=== PATIENT | male | born 1960 | race Caucasian/White ===

== ENCOUNTER 2017-07-29 13:52 | Emergency (ER) | payer OTHER ==
[~2017-07-29] VITALS: Ht 177.8 cm; Wt 118.9 kg
[2017-07-29 14:05] VITALS: TEMP 37.1; Ht 177.8 cm; Wt 118.9 kg
[2017-07-29] MEDS ORDERED: KETOROLAC TROMETHAMINE 30 MG/ML VIAL IV STA (15:34)
[2017-07-29] MEDS ORDERED: ONDANSETRON INJ 2 MG/ML 2 ML VIAL IV STA (15:34)
[2017-07-29 15:44] LABS: HEMATOCRIT 47.8 % (42-52); HEMOGLOBIN 16.6 g/dL (14.0-18.0); MEAN CELL VOLUME 91.6 fL (80-100); MEAN CORPUSCULAR HEMOGLOBIN 31.8 pg (25-34); MEAN CORPUSCULAR HGB CONC 34.7 g/dl (32-36); MEAN PLATELET VOLUME 9.7 fL (7.4-10.4); PLATELET COUNT 194 K/uL (130-400); RED CELL DISTRIBUTION WIDTH CV 14.3 % (11.5-14.5); RED CELL DISTRIBUTION WIDTH SD 47.9 fL (36.4-46.3); WHITE BLOOD COUNT 14.84 K/uL (4.8-10.8)
[2017-07-29] MEDS ORDERED: SODIUM CHLORIDE 0.9% 1000ML 1,000 ML IV ONE (15:45)
[2017-07-29 16:02] LABS: ALBUMIN 3.6 gm/dl (3.4-5.0); CALCIUM 9.3 mg/dl (8.5-10.1); CREATININE 1.25 mg/dl (0.60-1.40); POTASSIUM 3.9 mmol/L (3.5-5.1)
--- NOTE | 2017-07-29 16:09 | DIAGNOSTIC IMAGING REPORT ---
ABD/PELVIS NO IV OR ORAL CONT CT DOSE: 1711.13 mGy.cm HISTORY: Right lower quadrant pain Right flank pain rad to rlq TECHNIQUE: Multiaxial CT images of the abdomen and pelvis were performed without contrast. A dose lowering technique was utilized adhering to the principles of ALARA. COMPARISON STUDY: None. FINDINGS: Lung bases are clear. Fatty infiltration of the liver. Moderate right renal hydronephrosis. Mild right renal perinephric fat stranding. 4 mm obstructing calculus proximal right ureter best seen transaxial image 50. Several nonobstructing left renal calcifications. Nonobstructive bowel pattern. Mild chronic sigmoid diverticulosis. No evidence for acute diverticulitis. Fat-containing ventral hernia. Bladder is midline. IMPRESSION: 1. Obstructing 4 mm calculus proximal right ureter. 2. Moderate right renal height hydronephrosis with mild perinephric infiltrative change. 3. Several nonobstructing left renal calcifications. 4. Chronic sigmoid diverticulosis. The above report was generated using voice recognition software. It may contain grammatical, syntax or spelling errors. Electronically signed by: Ulises Urena M.D. 07/29/2017 4:07 PM Dictated Date/Time: 07/29/2017 4:04 PM
[2017-07-29] MEDS ORDERED: ASPI81TA28 PO (16:12)
[2017-07-29] MEDS ORDERED: ASCO10003 PO (16:12)
[2017-07-29] MEDS ORDERED: CANA1TAB PO (16:12)
[2017-07-29] MEDS ORDERED: LISI-461 PO (16:12)
[2017-07-29] MEDS ORDERED: GABA-113 PO (16:12)
[2017-07-29] MEDS ORDERED: CYAN500T13 PO (16:12)
[2017-07-29] MEDS ORDERED: DULO-24 PO (16:12)
[2017-07-29] MEDS ORDERED: METF-384 PO (16:12)
[2017-07-29] MEDS ORDERED: PYRI100T4 PO (16:12)
[2017-07-29] MEDS ORDERED: MULT-600 PO (16:12)
[2017-07-29] MEDS ORDERED: GLIP10TA9 PO (16:12)
[2017-07-29] MEDS ORDERED: PRAV40TA2 PO (16:12)
[2017-07-29] MEDS ORDERED: CEFTRIAXONE SOD INJ 1 GM ADDVIAL IV STA (16:37)
[2017-07-29] MEDS ORDERED: SULF800T23 PO (16:53)
[2017-07-29] MEDS ORDERED: TAMS0.4C38 PO (16:53)
[2017-07-29] MEDS ORDERED: ONDA4TAB10 SL (16:53)
[2017-07-29] MEDS ORDERED: OXYC1TAB3 PO (16:53)
[2017-07-29 18:16] VITALS: BP 139/71; PULSE 91; O2SAT 95
--- NOTE | 2017-07-30 15:17 | EMERGENCY ROOM VISIT NOTE ---
History First contact with patient: 15:08 Chief Complaint: FLANK PAIN Stated Complaint: ABD AND BACK PAIN History of Present Illness The patient is a 57 year old male who presents to the Emergency Room with complaints of right-sided flank pain that began about 8 hours ago. The patient travels extensively for work and lives in [place]. He noticed some discomfort as he was driving to [place] today. As he started traveling home from [place] he began with cold sweats and nausea. He now presents to this facility as it is the closest medical Hospital from when he started having symptoms. The patient states the pain is severe, 10/10, and radiating into his right-sided groin. He has not had fever or chills. The patient is diabetic. He does report a history of kidney stones in the past, but not for some time. No history of abdominal surgery. He has not taken anything [id number] as he has been traveling. He does not identify aggravating or alleviating factors. Review of Systems More than 10 systems were reviewed and otherwise negative with the exception of history of present illness. Past Medical/Surgical History Diabetes, hypertension Social History Smoking Status: Former Smoker Occupation Status: employed Current/Historical Medications Scheduled Ascorbic Acid (Vitamin C), 1,000 MG PO DAILY Aspirin (Aspirin Ec), 81 MG PO DAILY Canagliflozin (Invokana), 100 MG PO DAILY Cyanocobalamin (Vitamin B12 500MCG), 500 MCG PO DAILY Duloxetine HCl (Cymbalta), 20 MG PO BID Gabapentin (Neurontin), 300 MG PO HS Glipizide (Glucotrol), 10 MG PO BID Lisinopril (Zestril), 10 MG PO DAILY Metformin Hcl (Glucophage), 1,000 MG PO BID Multiple Vitamins W/ Minerals (Mens Multi Vitamin & Mine), 1 TAB PO DAILY Ondasetron Odt (Zofran Odt), 4 MG SL Q6H Oxycodone Immediate Rel Tab (Roxicodone Ir), 1-2 TAB PO Q6 Pravastatin Sodium (Pravastatin Sodium), 40 MG PO HS Pyridoxine (Vitamin B6), 100 MG PO BID Sulfa/Trimethoprim (Bactrim Ds 800MG/160MG), 1 TAB PO BID Tamsulosin Hcl (Flomax), 0.4 MG PO DAILY Physical Exam Vital Signs Date Time Temp Pulse Resp B/P (MAP) Pulse Ox O2 Delivery O2 Flow Rate FiO2 07/29/17 18:16 91 18 139/71 95 07/29/17 15:47 90 18 156/79 92 Room Air 07/29/17 14:05 37.1 88 18 154/84 94 Room Air Physical Exam VITALS: Vitals are noted on the nurse's note and reviewed by myself. Vital signs stable. GENERAL: Well-developed, well-nourished, white male who appears uncomfortable. He is cooperative., HEART: Regular rate and rhythm without murmurs gallops or rubs. LUNGS: Clear to auscultation bilaterally without wheezes, rales or rhonchi. No retractions or accessory muscle use. ABDOMEN: Positive normal bowel sounds x 4. Soft, nontender, without masses or organomegaly. No guarding or rebound tenderness. No CVA tenderness. MUSCULOSKELETAL: No muscle atrophy, erythema, or edema noted. Full range of motion without joint tenderness in all extremities. Medical Decision & Procedures ER Provider Diagnostic Interpretation: ABD/PELVIS NO IV OR ORAL CONT CT DOSE: 1711.13 mGy.cm HISTORY: Right lower quadrant pain Right flank pain rad to rlq TECHNIQUE: Multiaxial CT images of the abdomen and pelvis were performed without contrast. A dose lowering technique was utilized adhering to the principles of ALARA. COMPARISON STUDY: None. FINDINGS: Lung bases are clear. Fatty infiltration of the liver. Moderate right renal hydronephrosis. Mild right renal perinephric fat stranding. 4 mm obstructing calculus proximal right ureter best seen transaxial image 50. Several nonobstructing left renal calcifications. Nonobstructive bowel pattern. Mild chronic sigmoid diverticulosis. No evidence for acute diverticulitis. Fat-containing ventral hernia. Bladder is midline. IMPRESSION: 1. Obstructing 4 mm calculus proximal right ureter. 2. Moderate right renal height hydronephrosis with mild perinephric infiltrative change. 3. Several nonobstructing left renal calcifications. 4. Chronic sigmoid diverticulosis. Laboratory Results 07/29/17 15:34 Red Blood Count 5.22, Mean Corpuscular Volume 91.6, Mean Corpuscular Hemoglobin 31.8, Mean Corpuscular Hemoglobin Concent 34.7, Mean Platelet Volume 9.7 07/29/17 15:34 Test 07/29/17 15:09 07/29/17 15:34 Urine Color YELLOW Urine Appearance CLEAR (CLEAR) Urine pH 5.0 (4.5-7.5) Urine Specific [place] 1.030 (1.000-1.030) Urine Protein NEG (NEG) Urine Glucose (UA) 3+ (NEG) Urine Ketones NEG (NEG) Urine Occult Blood 3+ (NEG) Urine Nitrite NEG (NEG) Urine Bilirubin NEG (NEG) Urine Urobilinogen NEG (NEG) Urine Leukocyte Esterase NEG (NEG) Urine WBC (Auto) 1-5 /hpf (0-5) Urine RBC (Auto) >30 /hpf (0-4) Urine Hyaline Casts (Auto) 0 /lpf (0-5) Urine Epithelial Cells (Auto) 0-5 /lpf (0-5) Urine Bacteria (Auto) NEG (NEG) White Blood Count 14.84 K/uL (4.8-10.8) Red Blood Count 5.22 M/uL (4.7-6.1) Hemoglobin 16.6 g/dL (14.0-18.0) Hematocrit 47.8 % (42-52) Mean Corpuscular Volume 91.6 fL (80-100) Mean Corpuscular Hemoglobin 31.8 pg (25-34) Mean Corpuscular Hemoglobin Concent 34.7 g/dl (32-36) Platelet Count 194 K/uL (130-400) Mean Platelet Volume 9.7 fL (7.4-10.4) RDW Standard Deviation 47.9 fL (36.4-46.3) RDW Coefficient of Variation 14.3 % (11.5-14.5) Anion Gap 10.0 mmol/L (3-11) Est Creatinine Clear Calc Drug Dose 83.2 ml/min Estimated GFR () 73.1 Estimated GFR (Non- 63.1 BUN/Creatinine Ratio 14.2 (10-20) Calcium Level 9.3 mg/dl (8.5-10.1) Total Bilirubin 0.5 mg/dl (0.2-1) Aspartate Amino Transf (AST/SGOT) 22 U/L (15-37) Alanine Aminotransferase (ALT/SGPT) 48 U/L (12-78) Alkaline Phosphatase 54 U/L (45-117) Total Creatine Kinase 138 U/L (39-308) Total Protein 8.0 gm/dl (6.4-8.2) Albumin 3.6 gm/dl (3.4-5.0) Globulin 4.4 gm/dl (2.5-4.0) Albumin/Globulin Ratio 0.8 (0.9-2) Lipase 332 U/L (73-393) Medications Administered Medications (Trade) Dose Ordered Sig/Farhat Route Start Time Stop Time Status Last Admin Dose Admin Sodium Chloride 1,000 ml @ 999 mls/hr Q1H1M ONCE IV 07/29/17 15:45 07/29/17 16:45 DC 07/29/17 15:45 999 MLS/HR Ketorolac Tromethamine (Toradol Inj) 30 mg NOW STAT IV 07/29/17 15:34 07/29/17 15:36 DC 07/29/17 15:46 30 MG Ondansetron HCl (Zofran Inj) 4 mg NOW STAT IV 07/29/17 15:34 07/29/17 15:36 DC 07/29/17 15:45 4 MG Ceftriaxone Sodium (Rocephin Inj) 1 gm NOW STAT IV 07/29/17 16:37 07/29/17 16:38 DC 07/29/17 16:46 1 GM ED Course Physical exam and history were performed. Nursing notes, EMR, and Medication List were personally reviewed. Patient appears to have right-sided flank pain radiating into his right lower quadrant for the past several hours. He does appear uncomfortable on examination. IV access was established and labs were obtained. The patient was hydrated and medicated as above. Based on his presentation I did elect to perform a CT scan. The patient's blood work is as above and was reviewed. He does have an elevated white blood cell count of 14,000. He does not have a significant anemia or gross electrolyte imbalance. Lipase and transaminases are nondiagnostic. Urine is with blood. CT scan returned as above showing a 4 mm proximal ureteral calculi. This seems to correlate with his symptoms and is the likely cause of his pain. On repeat evaluation the patient had significant improvement of his pain with IV Toradol. I discussed options of care with the patient, and he does have a preference for discharge home as he lives nearly 2 hours away. Because of his elevated white count and diabetic history and did provide him a dose of Rocephin out of concern for possible early infection. I will give him a continuation prescription of Bactrim, as well as prescriptions for oxycodone, Zofran, and Flomax. The patient was given copies of his results today and will need to follow with urology upon returning home. He was certainly invited back to the ER with any new, worsening, or concerning symptoms. The chart was completed utilizing [employer] Speech Voice Recognition Software. Grammatical errors, random word insertions, pronoun errors, and incomplete sentences are an occasional consequence of this system due to software limitations, ambient noise, and hardware issues. Any formal questions or concerns about the content, text, or information contained within the body of this dictation should be directly addressed to the provider for clarification. . Medical Decision Differential diagnosis: Etiologies such as renal colic, appendicitis, diverticulitis, mesenteric ischemia, aortic pathology, infections, inflammatory bowel disease, PUD, biliary pathology, UTI, as well as others were entertained. Impression Primary Impression: Right ureteral calculus Departure Information Dispostion Home / Self-Care Condition GOOD Prescriptions Sulfa/Trimethoprim (Bactrim Ds 800MG/160MG) Tab 1 TAB PO BID for 7 Days, #14 TAB Prov: Kade Avalos PA-C 07/29/17 Tamsulosin Hcl (FLOMAX) 0.4 Mg Cap 0.4 MG PO DAILY for 7 Days, #7 CAP Prov: Kade Avalos PA-C 07/29/17 Ondasetron Odt (ZOFRAN ODT) 4 Mg Tab 4 MG SL Q6H for Nausea, #12 TAB Prov: Kade Avalos PA-C 07/29/17 Oxycodone Immediate Rel Tab (ROXICODONE IR) 5 Mg Tab 1-2 TAB PO Q6 for Pain, #24 TAB Prov: Kade Avalos PA-C 07/29/17 Forms HOME CARE DOCUMENTATION FORM, Work Instructions, Additional Instructions: Patient was seen and evaluated the emergency department today for medica care. Return to work on 08/05/2017 or sooner if feeling better. Pleas excuse. IMPORTANT VISIT INFORMATION Patient Instructions [facility], ED [facility] Ren[facility] Col[facility] Additional Instructions You were seen and evaluated today on an emergency basis only. This is not a substitute for, or an effort to provide, complete comprehensive medical care. It is not possible to recognize and treat all injuries or illnesses in a single emergency department visit. For this reason it is recommended that you followup with Urology back home for ongoing care. Please try to contact them in the morning to make an appointment in the next week. For baseline pain relief you may alternate ibuprofen and acetaminophen every 4 hours for pain control. Take 600 mg ibuprofen (Advil) and then 4 hours later take 1000 mg acetaminophen (Tylenol). Do not take more than 3000 mg acetaminophen in a single day. Oxycodone (OxyIR) 5mg: Take ONE pill every SIX hours for breakthrough pain. Avoid alcohol, operating machinery or dangerous equipment, working on ladders or roofs, DRIVING, or situations where being under the influence may be dangerous. It is recommended to use an [id number] stool softener such as Colace, 100mg twice daily while taking this medication to avoid constipation. Zofran 4 mg ODT: Dissolve 1 tablet every 6 hrs as needed for nausea. Take Flomax once daily Trimethoprim-Sulfamethoxazole(Bactrim DS): Take one pill twice daily for 7 days for your possible infection. All antibiotics can cause diarrhea. If this occurs and you feel worse or it does not resolve in 1-2 days follow up with your doctor or return to the Emergency Department as this could be signs of serious underlying problems. Any medication can cause an allergic reaction, stop the pills immediately and return to the ER for rash, hives, breathing difficulties, or swelling. Drink plenty of fluids and remain well hydrated You are welcome to return to the emergency department anytime with new, worsening, or concerning symptoms. Work Instructions Additional Work Instructions: Patient was seen and evaluated the emergency department today for medical care. Return to work on 08/05/2017 or sooner if feeling better. Please excuse.
== END 2017-07-29 18:17 | disposition home or self-care (01) ==
LOC: C.EDB 13:54 → C.EDA 18:17
DX: N20.1 Calculus of ureter (principal); E11.9 Type 2 diabetes mellitus without complications; I10 Essential (primary) hypertension; Z87.442 Personal history of urinary calculi; Z87.891 Personal history of nicotine dependence; Z79.82 Long term (current) use of aspirin; Z79.84 Long term (current) use of oral hypoglycemic drugs